=== PATIENT | female | born 1960 | race Caucasian/White ===

== ENCOUNTER 2018-10-06 19:01 | Emergency (ER) | payer OTHER ==
[2018-10-06] MEDS ORDERED: KETOROLAC 30 MG/1 ML SDV IVP ONE ×2 (19:21→20:32)
[2018-10-06] MEDS ORDERED: NS 1,000 ML IV ONE ×2 (19:21→20:55)
[2018-10-06] MEDS ORDERED: DEXAMETHASONE 10 MG/ML VIAL IVP ONE (19:21)
[2018-10-06] MEDS ORDERED: METOCLOPRAMIDE 10 MG/2 ML VIAL IVP ONE (19:21)
--- NOTE | 2018-10-06 19:25 | EDPHY ---
H & P Time Seen by Provider: 10/06/18 19:14 HPI/ROS: CHIEF COMPLAINT: Migraine headache HISTORY OF PRESENT ILLNESS: Long history of migraines, visiting from [place] for her son's graduation, migraine identical to previous except for severity. Started slow onset at 2:00 p.m., top of her head associated with nausea vomiting and light sensitivity. No aura. Not better with her usual migraine medication. Moderate to severe at this time. Headache does not radiate. REVIEW OF SYSTEMS: Eye: no change in vision ENT: no sore throat or earache. Cardiac: no chest pain or syncope Pulmonary: no cough or SOB Abdomen: No diarrhea or abdominal pain Musculoskeletal: No neck pain Skin: no rash Neuro: HPI Constitutional: no fever : no urinary symptoms A comprehensive 10 point review of systems is otherwise negative aside from elements mentioned in the history of present illness. PAST MEDICAL HISTORY: Migraine headaches Social history: Lives in [facility], her son drove her here. General Appearance: Alert and conversant, cooperative. Eyes: No scleral icterus. Pupils equal round reactive extraocular motion intact. ENT, Mouth: Normal mucous membranes. Slightly dry mucous membranes, normal tympanic membranes. Respiratory: Normal respiratory effort, breath sounds equal, lungs are clear to auscultation. Cardiovascular: Regular rate and rhythm. Gastrointestinal: Abdomen is soft and non tender. Neurological: Alert, face symmetric, normal motor and sensory in extremities. Speech fluent, normal mentation, normal [id number] bilaterally with no pronator drift. Skin: Warm and dry, no rashes. Musculoskeletal: No neck stiffness. Psychiatric: Emergency Department course/MDM: Presents with her typical migraine. Requesting non opioid medications. Toradol 15, dexamethasone 10, Reglan 10, Benadryl 25, normal saline 1 L for vomiting. Differential diagnosis considered for headache including but not limited to subarachnoid hemorrhage, migraine headache, tension headache and infectious causes such as meningitis, pharyngitis and sinusitis. 2031: Still has headache but nausea is better. Phenergan 12.5 and Toradol 15. 2146: Sleeping, easily awakened, feels better and wants to be discharged which I think is reasonable. Smoking Status: Never smoked Constitutional: Initial Vital Signs Temperature (C) 36.5 C 10/06/18 19:06 Heart Rate 77 10/06/18 19:06 Respiratory Rate 16 10/06/18 19:06 Blood Pressure 143/80 H 10/06/18 19:06 O2 Sat (%) 94 10/06/18 19:06 O2 Delivery Mode Room Air Allergies/Adverse Reactions: codeine Allergy (Verified 10/06/18 19:05) doxycycline Allergy (Verified 10/06/18 19:05) Home Medications: Medication Instructions Recorded Axert 10/06/18 Medical Decision Making Differential Diagnosis: Differential diagnosis considered for headache including but not limited to subarachnoid hemorrhage, migraine headache, tension headache and infectious causes such as meningitis, pharyngitis and sinusitis. - Data Points Medications Given: Magnesium Sulfate/Dextrose (Magnesium Sulf 1 Gm (Premix)) 100 mls @ 100 mls/hr IV EDNOW ONE Stop: 10/06/18 21:54 Last Admin: 10/06/18 21:13 Dose: 100 mls Discontinued Medications Dexamethasone (Decadron Injection) 10 mg IVP EDNOW ONE Stop: 10/06/18 19:22 Last Admin: 10/06/18 19:52 Dose: 10 mg Diphenhydramine HCl (Benadryl Injection) 25 mg IVP EDNOW ONE Stop: 10/06/18 19:22 Last Admin: 10/06/18 19:49 Dose: 25 mg Sodium Chloride (Ns) 1,000 mls @ 0 mls/hr IV ONCE ONE; Wide Open PRN Reason: Protocol Stop: 10/06/18 19:22 Last Admin: 10/06/18 19:52 Dose: 1,000 mls Sodium Chloride (Ns) 1,000 mls @ 0 mls/hr IV EDNOW ONE; Wide Open PRN Reason: Protocol Stop: 10/06/18 20:56 Last Admin: 10/06/18 21:15 Dose: 1,000 mls Ketorolac Tromethamine (Toradol) 15 mg IVP EDNOW ONE Stop: 10/06/18 19:22 Last Admin: 10/06/18 19:50 Dose: 15 mg Ketorolac Tromethamine (Toradol) 15 mg IVP EDNOW ONE Stop: 10/06/18 20:33 Last Admin: 10/06/18 20:38 Dose: 15 mg Metoclopramide HCl (Reglan Injection) 10 mg IVP EDNOW ONE Stop: 10/06/18 19:22 Last Admin: 10/06/18 19:52 Dose: 10 mg Promethazine HCl (Phenergan) 12.5 mg IVP EDNOW ONE Stop: 10/06/18 20:34 Last Admin: 10/06/18 20:45 Dose: 12.5 mg Departure - Departure Disposition: Home, Routine, Self-Care Clinical Impression: Migraine headache Qualifiers: Migraine type: unspecified Status migrainosus presence: without status migrainosus Intractability: not intractable Qualified Code(s): G43.909 - Migraine, unspecified, not intractable, without status migrainosus Condition: Good Instructions: Migraine Headache (ED) Referrals: Norma Aguilar [Other] - As per Instructions (your MD in [place])
[2018-10-06] MEDS ORDERED: PROMETHAZINE HCL 25 MG/ML INJ IVP ONE (20:33)
[2018-10-06] MEDS ORDERED: MAGNESIUM SULF 1 GM/DEXTROSE 100 ML IV ONE (20:55)
[2018-10-06 21:24] VITALS: BP 113/79
== END 2018-10-06 22:08 | disposition home or self-care (01) ==
DX: G43.909 Migraine, unspecified, not intractable, without status migrainosus (principal); E86.9 Volume depletion, unspecified
CPT/HCPCS: 96374; J1100; J1200; J1885; J2550; J2765; J3475